=== PATIENT | male | born 1970 | race Caucasian/White ===

== ENCOUNTER 2020-04-09 11:01 | Inpatient (IN) ==
[2020-04-09] MEDS ORDERED: Ondansetron 4 mg VIAL 2 MG/ML 2 ml VIAL IV ONE ×2 (12:05→16:00)
[2020-04-09] MEDS ORDERED: NS 0.9% 1000 ml BAG 1,000 ML IV ONE (12:05)
[2020-04-09 12:38] LABS: ABS Basophils 0.1 10^3/ul (0-0.2); ABS Lymphocytes 0.8 10^3/ul (1.0-4.8); ABS Monocytes 0.8 10^3/ul (0-0.8); ABS Neutrophils 7.9 10^3/ul (1.5-7.7); Eosinophil % 0.1 %; Hematocrit 39 % (42-52); Hemoglobin 13.5 g/dL (14.0-18.0); Mean Corpuscular HGB Conc 35 g/dL (31-36); Mean Corpuscular Hemoglobin 31 pg (27-31); Mean Corpuscular Volume 89 fL (80-94); Mean Platelet Volume 8.5 fL (7.4-10.4); Platelet Count 266 10^3/uL (150-450); Red Blood Count 4.39 10^6 /uL (4.18-5.48); Red Cell Distribution Width 14 % (10-15); White Blood Count 9.5 10^3/uL (3.5-10.8)
[2020-04-09] MEDS ORDERED: Morphine 4 MG/ML VIAL (1 ml) IV ONE ×3 (12:41→19:16)
[2020-04-09] MEDS ORDERED: Famotidine IV 10 MG/ML 2 ml VIAL (20 mg) IV SLOW PU ONE (12:41)
[2020-04-09 12:56] LABS: Albumin 3.8 g/dL (3.2-5.2); BUN/Creatinine Ratio 12.5 (8-20); Calcium 9.1 mg/dL (8.6-10.3); EGFR African American 160.2 (>60); EGFR Non-African American 132.4 (>60); Globulin 3.7 g/dL (2-4); Potassium 3.9 mmol/L (3.5-5.0); Total Bilirubin 0.5 mg/dL (0.2-1.0); Total Protein 7.5 g/dL (6.4-8.9)
[2020-04-09 14:37] LABS: Urine Appearance Clear; Urine Bilirubin Negative (Negative); Urine Blood Negative (Negative); Urine Color Straw; Urine Glucose Negative (Negative); Urine Ketones Negative (Negative); Urine Nitrite Negative (Negative); Urine Protein Negative (Negative); Urine Specific Gravity 1.005 (1.010-1.030); Urine Urobilinogen Negative (Negative)
[2020-04-09] MEDS ORDERED: Iohexol 300 (CONTRAST) 10 ML SDV IV ONE (15:15)
[2020-04-09 21:23] LABS: TSH Ultra Thyroid Stim Horm 0.31 mcIU/mL (0.34-5.60)
[2020-04-09] MEDS: NS 0.9% 1000 ml BAG 1,000 ML IV SCH (22:40)
[2020-04-09] MEDS: Pantoprazole VIAL 40 MG VIAL IV SCH (22:40)
[2020-04-10] MEDS: Ondansetron 4 mg VIAL 2 MG/ML 2 ml VIAL IV PRN ×2 (00:23→05:22)
[2020-04-10 06:52] LABS: ABS Lymphocytes 0.6 10^3/ul (1.0-4.8); ABS Monocytes 1.2 10^3/ul (0-0.8); ABS Neutrophils 8.6 10^3/ul (1.5-7.7); Eosinophil % 0.1 %; Hematocrit 38 % (42-52); Mean Corpuscular HGB Conc 34 g/dL (31-36); Mean Corpuscular Hemoglobin 31 pg (27-31); Mean Corpuscular Volume 90 fL (80-94); Mean Platelet Volume 8.7 fL (7.4-10.4); Platelet Count 239 10^3/uL (150-450); Red Blood Count 4.26 10^6 /uL (4.18-5.48); Red Cell Distribution Width 13 % (10-15); White Blood Count 10.5 10^3/uL (3.5-10.8)
[2020-04-10 07:10] LABS: INR 1.5 (0.82-1.09)
[2020-04-10 07:13] LABS: BUN/Creatinine Ratio 15.3 (8-20); Calcium 8.8 mg/dL (8.6-10.3); EGFR African American 175.9 (>60); EGFR Non-African American 145.4 (>60); Potassium 3.7 mmol/L (3.5-5.0)
[2020-04-10] MEDS: NS 0.9% 1000 ml BAG 1,000 ML IV SCH ×2 (08:08→22:32)
[2020-04-10] MEDS ORDERED: PEG 3000 GI LAVAGE 1 GALLON PO ONE (14:30)
[2020-04-10] MEDS: Pantoprazole VIAL 40 MG VIAL IV SCH (20:24)
[2020-04-11] MEDS: Ondansetron 4 mg VIAL 2 MG/ML 2 ml VIAL IV PRN ×2 (02:03→10:16)
[2020-04-11 06:19] LABS: ABS Lymphocytes 0.6 10^3/ul (1.0-4.8); ABS Monocytes 1.2 10^3/ul (0-0.8); ABS Neutrophils 7.3 10^3/ul (1.5-7.7); Eosinophil % 0.1 %; Hematocrit 35 % (42-52); Hemoglobin 12.1 g/dL (14.0-18.0); Lymphocyte % 6.9 %; Mean Corpuscular HGB Conc 34 g/dL (31-36); Mean Corpuscular Hemoglobin 31 pg (27-31); Mean Corpuscular Volume 90 fL (80-94); Platelet Count 214 10^3/uL (150-450); Red Blood Count 3.94 10^6 /uL (4.18-5.48); Red Cell Distribution Width 13 % (10-15); White Blood Count 9.2 10^3/uL (3.5-10.8)
[2020-04-11 06:36] LABS: Albumin 3.4 g/dL (3.2-5.2); C Reactive Protein 177.28 mg/L (<8.01); Calcium 8.5 mg/dL (8.6-10.3); EGFR African American 199.1 (>60); EGFR Non-African American 164.6 (>60); Globulin 3.4 g/dL (2-4); Potassium 3.5 mmol/L (3.5-5.0); Total Bilirubin 0.7 mg/dL (0.2-1.0); Total Protein 6.8 g/dL (6.4-8.9)
[2020-04-11] MEDS: NS 0.9% 1000 ml BAG 1,000 ML IV SCH (08:57)
[2020-04-11] MEDS ORDERED: Gadoxetate (CONTRAST) 181.43 MG/ML 10 ML SDV IV ONE (12:36)
[2020-04-11] MEDS ORDERED: fentaNYL 100 mcg/2 ml 50 MCG/ML VIAL ONE (14:46)
[2020-04-11] MEDS ORDERED: Midazolam 10 mg/10 ml VIAL 1 mg/ml 10 ml VIAL (10 mg) ONE (14:46)
[2020-04-11] MEDS ORDERED: Phytonadione IV (Adult) 10 MG in NS 0.9% 50 ML 50 ML IV ONE (17:30)
[2020-04-11] MEDS: Pantoprazole VIAL 40 MG VIAL IV SCH (20:04)
[2020-04-12 05:04] LABS: Iron < 20 ug/dL (50-212)
[2020-04-12 05:05] LABS: ALT 33 U/L (7-52); AST 30 U/L (13-39); Albumin 3.3 g/dL (3.2-5.2); Alkaline Phosphatase 155 U/L (34-104); Anion Gap 9 mmol/L (2-11); BUN/Creatinine Ratio 15.4 (8-20); Blood Urea Nitrogen 8 mg/dL (6-24); CO2 Carbon Dioxide 22 mmol/L (22-32); Calcium 8.4 mg/dL (8.6-10.3); Chloride 100 mmol/L (101-111); EGFR African American 203.5 (>60); EGFR Non-African American 168.2 (>60); Globulin 3.4 g/dL (2-4); Glucose 106 mg/dL (70-100); Potassium 3.6 mmol/L (3.5-5.0); Sodium 131 mmol/L (135-145); Total Protein 6.7 g/dL (6.4-8.9)
[2020-04-12] MEDS: NS 0.9% 1000 ml BAG 1,000 ML IV SCH (05:51)
[2020-04-12] MEDS: Ondansetron 4 mg VIAL 2 MG/ML 2 ml VIAL IV PRN ×3 (12:23→22:18)
[2020-04-12 12:36] LABS: INR 1.48 (0.82-1.09)
[2020-04-12] MEDS ORDERED: Piperacillin/Tazobac ADVAN 3.375 GM in NS 0.9% 100 ml BAG 100 ML IV ONE (16:59)
[2020-04-12] MEDS ORDERED: Zosyn per Pharmacy NOTE FOLLOW UP SCH (17:00)
[2020-04-12] MEDS: Pantoprazole VIAL 40 MG VIAL IV SCH (22:05)
[2020-04-12] MEDS: ZOSYN 3.375 GM Q8H per EXTENDED INFUSION IV SCH (22:05)
[2020-04-13] MEDS: Ondansetron 4 mg VIAL 2 MG/ML 2 ml VIAL IV PRN ×4 (02:09→14:06)
[2020-04-13] MEDS: ZOSYN 3.375 GM Q8H per EXTENDED INFUSION IV SCH ×3 (06:06→22:20)
[2020-04-13 07:01] LABS: Hematocrit 32 % (42-52); Hemoglobin 11.1 g/dL (14.0-18.0); Mean Corpuscular HGB Conc 34 g/dL (31-36); Mean Corpuscular Hemoglobin 31 pg (27-31); Mean Corpuscular Volume 90 fL (80-94); Mean Platelet Volume 9.5 fL (7.4-10.4); Platelet Count 194 10^3/uL (150-450); Red Cell Distribution Width 14 % (10-15); White Blood Count 9.8 10^3/uL (3.5-10.8)
[2020-04-13 07:20] LABS: Albumin 3.2 g/dL (3.2-5.2); BUN/Creatinine Ratio 13.7 (8-20); Calcium 8.4 mg/dL (8.6-10.3); EGFR African American 208.2 (>60); Globulin 3.3 g/dL (2-4); Potassium 3.6 mmol/L (3.5-5.0); Total Protein 6.5 g/dL (6.4-8.9)
[2020-04-13 07:25] LABS: INR 1.5 (0.82-1.09)
[2020-04-13] MEDS: Nicotine PATCH 21 MG/24 HR PATCH TRANSDERM SCH (08:43)
[2020-04-13] MEDS ORDERED: fentaNYL 100 mcg/2 ml 50 MCG/ML VIAL ONE ×2 (10:34→16:49)
[2020-04-13] MEDS: Pantoprazole VIAL 40 MG VIAL IV SCH (22:20)
[2020-04-14] MEDS ORDERED: NS 0.9% 1000 ml BAG 1,000 ML IV ONE ×2 (03:22→07:19)
[2020-04-14] MEDS: ZOSYN 3.375 GM Q8H per EXTENDED INFUSION IV SCH (05:56)
[2020-04-14 06:28] LABS: Hematocrit 31 % (42-52); Hemoglobin 10.5 g/dL (14.0-18.0); Mean Corpuscular HGB Conc 34 g/dL (31-36); Mean Corpuscular Hemoglobin 30 pg (27-31); Mean Corpuscular Volume 90 fL (80-94); Mean Platelet Volume 9.4 fL (7.4-10.4); Platelet Count 121 10^3/uL (150-450); Red Blood Count 3.48 10^6 /uL (4.18-5.48); Red Cell Distribution Width 14 % (10-15); White Blood Count 24.9 10^3/uL (3.5-10.8)
[2020-04-14 06:52] LABS: Potassium 3.5 mmol/L (3.5-5.0)
[2020-04-14 06:53] LABS: Albumin 2.9 g/dL (3.2-5.2); Albumin/Globulin Ratio 0.9 (1-3); BUN/Creatinine Ratio 15.7 (8-20); C Reactive Protein 228.43 mg/L (<8.01); Calcium 7.6 mg/dL (8.6-10.3); EGFR African American 72.6 (>60); Globulin 3.1 g/dL (2-4); Total Bilirubin 2.3 mg/dL (0.2-1.0)
[2020-04-14 07:01] LABS: ABS Lymphocytes 0.2 10^3/ul (1.0-4.8); ABS Monocytes 0.5 10^3/ul (0-0.8)
[2020-04-14] MEDS ORDERED: NS 0.9% 1000 ml BAG 1,000 ML IV SCH (07:30)
[2020-04-14] MEDS: Nicotine PATCH 21 MG/24 HR PATCH TRANSDERM SCH (07:32)
[2020-04-14] MEDS ORDERED: Vancomycin per Pharmacy 1 EA NOTE FOLLOW UP SCH (08:00)
[2020-04-14] MEDS ORDERED: Cefepime 1 GM in Dextrose 1 GM/50 ML BAG IV SCH (08:00)
[2020-04-14] MEDS ORDERED: Vancomycin 1,500 MG in NS 0.9% 250 ml 250 ML IVPB ONE (08:30)
[2020-04-14] MEDS ORDERED: metroNIDAZOLE IV 500 MG/100ML 500 MG/100 ML BAG IVPB SCH (09:00)
[2020-04-14] MEDS ORDERED: Zosyn per Pharmacy NOTE FOLLOW UP SCH (12:00)
[2020-04-14] MEDS: Piperacillin/Tazobac ADVAN 3.375 GM in NS 0.9% 100 ml BAG 100 ML IV SCH ×2 (13:52→22:35)
[2020-04-14 15:43] LABS: BUN/Creatinine Ratio 22.1 (8-20); Calcium 7.8 mg/dL (8.6-10.3); EGFR African American 129.4 (>60); EGFR Non-African American 106.9 (>60); Potassium 3.6 mmol/L (3.5-5.0)
[2020-04-14] MEDS: Pantoprazole VIAL 40 MG VIAL IV SCH (22:35)
[2020-04-15] MEDS: Piperacillin/Tazobac ADVAN 3.375 GM in NS 0.9% 100 ml BAG 100 ML IV SCH ×3 (05:55→21:21)
[2020-04-15 06:32] LABS: ABS Basophils 0.1 10^3/ul (0-0.2); ABS Eosinophils 0.1 10^3/ul (0-0.6); ABS Lymphocytes 0.5 10^3/ul (1.0-4.8); ABS Monocytes 0.4 10^3/ul (0-0.8); ABS Neutrophils 16.1 10^3/ul (1.5-7.7); Eosinophil % 0.8 %; Hematocrit 31 % (42-52); Hemoglobin 10.4 g/dL (14.0-18.0); Lymphocyte % 2.9 %; Mean Corpuscular HGB Conc 34 g/dL (31-36); Mean Corpuscular Hemoglobin 30 pg (27-31); Mean Corpuscular Volume 89 fL (80-94); Mean Platelet Volume 10.4 fL (7.4-10.4); Platelet Count 131 10^3/uL (150-450); Red Blood Count 3.45 10^6 /uL (4.18-5.48); Red Cell Distribution Width 14 % (10-15); White Blood Count 17.2 10^3/uL (3.5-10.8)
[2020-04-15 06:47] LABS: Albumin 2.8 g/dL (3.2-5.2); Albumin/Globulin Ratio 0.9 (1-3); BUN/Creatinine Ratio 16.9 (8-20); Calcium 7.8 mg/dL (8.6-10.3); EGFR African American 175.9 (>60); EGFR Non-African American 145.4 (>60); Globulin 3.1 g/dL (2-4); Potassium 3.3 mmol/L (3.5-5.0); Total Protein 5.9 g/dL (6.4-8.9)
[2020-04-15] MEDS ORDERED: Potassium Chlor 20 meq TAB.ER PO ONE (08:03)
[2020-04-15] MEDS: Nicotine PATCH 21 MG/24 HR PATCH TRANSDERM SCH (08:03)
[2020-04-15] MEDS: NS 0.9% 1000 ml BAG 1,000 ML IV SCH ×3 (13:43→23:30)
[2020-04-15] MEDS: Pantoprazole VIAL 40 MG VIAL IV SCH (21:21)
[2020-04-16 04:35] LABS: ABS Eosinophils 0.3 10^3/ul (0-0.6); ABS Lymphocytes 0.7 10^3/ul (1.0-4.8); ABS Monocytes 0.4 10^3/ul (0-0.8); ABS Neutrophils 8.3 10^3/ul (1.5-7.7); Hematocrit 28 % (42-52); Hemoglobin 9.7 g/dL (14.0-18.0); Lymphocyte % 7.3 %; Mean Corpuscular HGB Conc 34 g/dL (31-36); Mean Corpuscular Hemoglobin 31 pg (27-31); Mean Corpuscular Volume 89 fL (80-94); Mean Platelet Volume 10.2 fL (7.4-10.4); Platelet Count 144 10^3/uL (150-450); Red Blood Count 3.17 10^6 /uL (4.18-5.48); Red Cell Distribution Width 14 % (10-15); White Blood Count 9.7 10^3/uL (3.5-10.8)
[2020-04-16 04:48] LABS: Albumin 2.6 g/dL (3.2-5.2); Albumin/Globulin Ratio 0.9 (1-3); BUN/Creatinine Ratio 17.6 (8-20); Calcium 7.9 mg/dL (8.6-10.3); EGFR African American 208.2 (>60); Globulin 2.9 g/dL (2-4); Potassium 3.5 mmol/L (3.5-5.0); Total Bilirubin 2.7 mg/dL (0.2-1.0); Total Protein 5.5 g/dL (6.4-8.9)
[2020-04-16] MEDS: Piperacillin/Tazobac ADVAN 3.375 GM in NS 0.9% 100 ml BAG 100 ML IV SCH ×3 (06:34→18:51)
[2020-04-16] MEDS: Nicotine PATCH 21 MG/24 HR PATCH TRANSDERM SCH (08:35)
[2020-04-16] MEDS ORDERED: Caspofungin(NF) 70 MG in NS 0.9% 250 ml 250 ML IV ONE (12:01)
[2020-04-16] MEDS ORDERED: Magnesium Hydroxide LIQ 30 ML UDC PO PRN (12:07)
[2020-04-16] MEDS ORDERED: Magnesium Hydroxide LIQ 30 ML UDC PO ONE (12:07)
[2020-04-16] MEDS: NS 0.9% 1000 ml BAG 1,000 ML IV SCH (12:59)
[2020-04-16] MEDS ORDERED: Anidulafungin 200 MG in NS 0.9% 200 ML IVPB ONE (13:30)
[2020-04-16] MEDS: Pantoprazole VIAL 40 MG VIAL IV SCH (20:46)
[2020-04-17] MEDS: Piperacillin/Tazobac ADVAN 3.375 GM in NS 0.9% 100 ml BAG 100 ML IV SCH ×4 (00:45→18:09)
[2020-04-17] MEDS: NS 0.9% 1000 ml BAG 1,000 ML IV SCH ×2 (04:43→23:20)
[2020-04-17 06:39] LABS: Hematocrit 30 % (42-52); Hemoglobin 10.2 g/dL (14.0-18.0); Mean Corpuscular HGB Conc 34 g/dL (31-36); Mean Corpuscular Hemoglobin 30 pg (27-31); Mean Corpuscular Volume 88 fL (80-94); Mean Platelet Volume 10.9 fL (7.4-10.4); Platelet Count 171 10^3/uL (150-450); Red Blood Count 3.39 10^6 /uL (4.18-5.48); Red Cell Distribution Width 14 % (10-15); White Blood Count 9.3 10^3/uL (3.5-10.8)
[2020-04-17 06:55] LABS: Albumin 2.7 g/dL (3.2-5.2); Albumin/Globulin Ratio 0.9 (1-3); Calcium 8.1 mg/dL (8.6-10.3); Globulin 3.1 g/dL (2-4); Magnesium 1.7 mg/dL (1.9-2.7); Potassium 3.5 mmol/L (3.5-5.0); Total Bilirubin 4.3 mg/dL (0.2-1.0); Total Protein 5.8 g/dL (6.4-8.9)
[2020-04-17 07:02] LABS: ABS Basophils 0.1 10^3/ul (0-0.2); ABS Eosinophils 0.3 10^3/ul (0-0.6); ABS Lymphocytes 0.7 10^3/ul (1.0-4.8); ABS Monocytes 0.5 10^3/ul (0-0.8); ABS Neutrophils 7.7 10^3/ul (1.5-7.7); Eosinophil % 2.9 %; Lymphocyte % 7.6 %
[2020-04-17] MEDS: Nicotine PATCH 21 MG/24 HR PATCH TRANSDERM SCH (07:52)
[2020-04-17 11:19] LABS: INR 1.43 (0.82-1.09)
[2020-04-17 11:26] LABS: Albumin 2.7 g/dL (3.2-5.2); Albumin/Globulin Ratio 0.9 (1-3); BUN/Creatinine Ratio 19.6 (8-20); Calcium 7.9 mg/dL (8.6-10.3); EGFR African American 208.2 (>60); Potassium 3.5 mmol/L (3.5-5.0); Total Bilirubin 4.2 mg/dL (0.2-1.0); Total Protein 5.7 g/dL (6.4-8.9)
[2020-04-17] MEDS ORDERED: NS 0.9% IV SCH (12:02)
[2020-04-17] MEDS ORDERED: CASPOFUNGIN IV SCH (12:02)
[2020-04-17] MEDS ORDERED: Potassium Chlor 20 meq TAB.ER PO ONE (12:38)
[2020-04-17] MEDS: Anidulafungin 100 MG in NS 0.9% 100 ML IVPB SCH (14:06)
[2020-04-17] MEDS: Ondansetron 4 mg VIAL 2 MG/ML 2 ml VIAL IV PRN (19:48)
[2020-04-17] MEDS ORDERED: Iohexol 300 (CONTRAST) 10 ML SDV IV ONE (19:52)
[2020-04-17 20:41] LABS: Hematocrit 33 % (42-52); Hemoglobin 11.1 g/dL (14.0-18.0); Mean Corpuscular HGB Conc 34 g/dL (31-36); Mean Corpuscular Hemoglobin 30 pg (27-31); Mean Corpuscular Volume 90 fL (80-94); Mean Platelet Volume 10.4 fL (7.4-10.4); Platelet Count 177 10^3/uL (150-450); Red Blood Count 3.65 10^6 /uL (4.18-5.48); Red Cell Distribution Width 14 % (10-15); White Blood Count 8.9 10^3/uL (3.5-10.8)
[2020-04-17 20:52] LABS: Albumin/Globulin Ratio 0.9 (1-3); BUN/Creatinine Ratio 14.3 (8-20); Calcium 8.2 mg/dL (8.6-10.3); EGFR Non-African American 180.2 (>60); Globulin 3.2 g/dL (2-4); Total Bilirubin 4.8 mg/dL (0.2-1.0); Total Protein 6.2 g/dL (6.4-8.9)
[2020-04-17 20:56] LABS: Potassium 4.1 mmol/L (3.5-5.0)
[2020-04-17] MEDS: Pantoprazole VIAL 40 MG VIAL IV SCH (21:03)
[2020-04-17] MEDS: Polyethylene Glycol 3350 17 GM PACKET PO SCH (21:10)
[2020-04-17 22:03] LABS: ABS Eosinophils 0.3 10^3/ul (0-0.6); ABS Lymphocytes 0.9 10^3/ul (1.0-4.8); ABS Monocytes 0.8 10^3/ul (0-0.8); ABS Neutrophils 6.9 10^3/ul (1.5-7.7); Eosinophil % 2.8 %; Lymphocyte % 10.1 %
[2020-04-18] MEDS ORDERED: Midazolam 2 mg/2 ml VIAL 1 mg/ml 2 ml VIAL (2 mg) IV SLOW PU SCH
[2020-04-18] MEDS ORDERED: fentaNYL 100 mcg/2 ml 50 MCG/ML VIAL IV SCH ×2
[2020-04-18] MEDS: Piperacillin/Tazobac ADVAN 3.375 GM in NS 0.9% 100 ml BAG 100 ML IV SCH ×4 (00:27→18:07)
[2020-04-18] MEDS: Ondansetron 4 mg VIAL 2 MG/ML 2 ml VIAL IV PRN ×3 (02:58→20:40)
[2020-04-18 05:41] LABS: Hematocrit 31 % (42-52); Hemoglobin 10.7 g/dL (14.0-18.0); Mean Corpuscular HGB Conc 35 g/dL (31-36); Mean Corpuscular Hemoglobin 30 pg (27-31); Mean Corpuscular Volume 88 fL (80-94); Mean Platelet Volume 10.7 fL (7.4-10.4); Platelet Count 188 10^3/uL (150-450); Red Blood Count 3.52 10^6 /uL (4.18-5.48); Red Cell Distribution Width 15 % (10-15); White Blood Count 7.8 10^3/uL (3.5-10.8)
[2020-04-18 05:59] LABS: Albumin 2.8 g/dL (3.2-5.2); Albumin/Globulin Ratio 0.9 (1-3); Globulin 3.1 g/dL (2-4); Magnesium 1.6 mg/dL (1.9-2.7); Potassium 3.5 mmol/L (3.5-5.0); Total Bilirubin 4.5 mg/dL (0.2-1.0); Total Protein 5.9 g/dL (6.4-8.9)
[2020-04-18] MEDS ORDERED: Al Hydrox/Mg Hydrox/Simet LIQ 30 ML UDC PO PRN (06:11)
[2020-04-18 07:25] LABS: ABS Eosinophils 0.1 10^3/ul (0-0.6); ABS Lymphocytes 0.5 10^3/ul (1.0-4.8); ABS Monocytes 0.7 10^3/ul (0-0.8); ABS Neutrophils 6.5 10^3/ul (1.5-7.7); Eosinophil % 1.8 %
[2020-04-18] MEDS ORDERED: Magnesium Sulf 4 GM/100 ML IV 4,000 MG/100 ML BAG IVPB ONE (08:19)
[2020-04-18] MEDS ORDERED: Potassium Chlor 20 meq TAB.ER PO ONE (08:20)
[2020-04-18] MEDS: Nicotine PATCH 21 MG/24 HR PATCH TRANSDERM SCH (09:58)
[2020-04-18] MEDS: Polyethylene Glycol 3350 17 GM PACKET PO SCH ×2 (09:59→20:39)
[2020-04-18] MEDS: Anidulafungin 100 MG in NS 0.9% 100 ML IVPB SCH (14:41)
[2020-04-18] MEDS: Pantoprazole VIAL 40 MG VIAL IV SCH (20:40)
[2020-04-18] MEDS: NS 0.9% 1000 ml BAG 1,000 ML IV SCH (21:22)
[2020-04-19] MEDS: Piperacillin/Tazobac ADVAN 3.375 GM in NS 0.9% 100 ml BAG 100 ML IV SCH ×4 (00:18→19:19)
[2020-04-19] MEDS: Ondansetron 4 mg VIAL 2 MG/ML 2 ml VIAL IV PRN ×3 (06:28→16:41)
[2020-04-19 07:01] LABS: Hematocrit 31 % (42-52); Hemoglobin 10.8 g/dL (14.0-18.0); Mean Corpuscular HGB Conc 34 g/dL (31-36); Mean Corpuscular Hemoglobin 30 pg (27-31); Mean Corpuscular Volume 88 fL (80-94); Mean Platelet Volume 10.4 fL (7.4-10.4); Platelet Count 223 10^3/uL (150-450); Red Blood Count 3.55 10^6 /uL (4.18-5.48); Red Cell Distribution Width 14 % (10-15)
[2020-04-19 07:07] LABS: INR 1.31 (0.82-1.09)
[2020-04-19 07:23] LABS: Albumin 2.8 g/dL (3.2-5.2); Magnesium 1.9 mg/dL (1.9-2.7); Potassium 3.8 mmol/L (3.5-5.0)
[2020-04-19 07:29] LABS: Albumin/Globulin Ratio 0.9 (1-3); BUN/Creatinine Ratio 23.4 (8-20); C Reactive Protein 79.05 mg/L (<8.01); EGFR African American 228.7 (>60); Total Protein 5.8 g/dL (6.4-8.9)
[2020-04-19 07:43] LABS: ABS Lymphocytes 0.7 10^3/ul (1.0-4.8); ABS Monocytes 0.6 10^3/ul (0-0.8); ABS Neutrophils 5.6 10^3/ul (1.5-7.7); Eosinophil % 0.5 %; Lymphocyte % 10.1 %
[2020-04-19] MEDS: Polyethylene Glycol 3350 17 GM PACKET PO SCH ×2 (08:08→22:15)
[2020-04-19] MEDS: Nicotine PATCH 21 MG/24 HR PATCH TRANSDERM SCH (08:09)
[2020-04-19] MEDS ORDERED: Potassium Chlor 20 meq TAB.ER PO ONE (09:54)
[2020-04-19] MEDS ORDERED: Magnesium Sulfate IV 1GM/100ML 1 GM/100 ML BAG IV ONE (09:54)
[2020-04-19] MEDS: NS 0.9% 1000 ml BAG 1,000 ML IV SCH (10:13)
[2020-04-19] MEDS: Anidulafungin 100 MG in NS 0.9% 100 ML IVPB SCH (12:44)
[2020-04-19] MEDS: Pantoprazole VIAL 40 MG VIAL IV SCH (22:13)
[2020-04-20] MEDS: NS 0.9% 1000 ml BAG 1,000 ML IV SCH ×2 (00:54→18:19)
[2020-04-20] MEDS: Piperacillin/Tazobac ADVAN 3.375 GM in NS 0.9% 100 ml BAG 100 ML IV SCH ×4 (00:54→19:16)
[2020-04-20 05:50] LABS: Hematocrit 33 % (42-52); Hemoglobin 11.4 g/dL (14.0-18.0); Mean Corpuscular HGB Conc 34 g/dL (31-36); Mean Corpuscular Hemoglobin 30 pg (27-31); Mean Corpuscular Volume 89 fL (80-94); Mean Platelet Volume 9.9 fL (7.4-10.4); Platelet Count 292 10^3/uL (150-450); Red Blood Count 3.77 10^6 /uL (4.18-5.48); Red Cell Distribution Width 14 % (10-15); White Blood Count 7.3 10^3/uL (3.5-10.8)
[2020-04-20 06:01] LABS: INR 1.21 (0.82-1.09)
[2020-04-20 06:07] LABS: Albumin 2.9 g/dL (3.2-5.2); Albumin/Globulin Ratio 0.9 (1-3); BUN/Creatinine Ratio 12.3 (8-20); Calcium 8.2 mg/dL (8.6-10.3); EGFR African American 183.1 (>60); EGFR Non-African American 151.3 (>60); Globulin 3.1 g/dL (2-4); Potassium 3.8 mmol/L (3.5-5.0)
[2020-04-20 06:22] LABS: ABS Eosinophils 0.2 10^3/ul (0-0.6); ABS Lymphocytes 1.1 10^3/ul (1.0-4.8); ABS Monocytes 0.9 10^3/ul (0-0.8); ABS Neutrophils 5.2 10^3/ul (1.5-7.7); Eosinophil % 2.1 %; Lymphocyte % 14.5 %
[2020-04-20] MEDS: Nicotine PATCH 21 MG/24 HR PATCH TRANSDERM SCH (10:39)
[2020-04-20] MEDS: Polyethylene Glycol 3350 17 GM PACKET PO SCH ×2 (10:39→21:26)
[2020-04-20] MEDS ORDERED: Potassium Chlor 20 meq TAB.ER PO ONE (11:27)
[2020-04-20] MEDS: Anidulafungin 100 MG in NS 0.9% 100 ML IVPB SCH (15:47)
[2020-04-20] MEDS: Pantoprazole VIAL 40 MG VIAL IV SCH (21:26)
[2020-04-21] MEDS: Piperacillin/Tazobac ADVAN 3.375 GM in NS 0.9% 100 ml BAG 100 ML IV SCH ×5 (00:08→23:10)
[2020-04-21 06:13] LABS: Hematocrit 31 % (42-52); Hemoglobin 10.5 g/dL (14.0-18.0); Mean Corpuscular HGB Conc 34 g/dL (31-36); Mean Corpuscular Hemoglobin 30 pg (27-31); Mean Corpuscular Volume 89 fL (80-94); Mean Platelet Volume 9.7 fL (7.4-10.4); Platelet Count 328 10^3/uL (150-450); Red Blood Count 3.48 10^6 /uL (4.18-5.48); Red Cell Distribution Width 15 % (10-15); White Blood Count 7.1 10^3/uL (3.5-10.8)
[2020-04-21 06:21] LABS: INR 1.2 (0.82-1.09)
[2020-04-21 06:32] LABS: Albumin 2.8 g/dL (3.2-5.2); BUN/Creatinine Ratio 16.3 (8-20); C Reactive Protein 31.91 mg/L (<8.01); Calcium 8.3 mg/dL (8.6-10.3); EGFR Non-African American 180.2 (>60); Globulin 2.9 g/dL (2-4); Magnesium 1.9 mg/dL (1.9-2.7); Potassium 3.7 mmol/L (3.5-5.0); Total Bilirubin 1.6 mg/dL (0.2-1.0); Total Protein 5.7 g/dL (6.4-8.9)
[2020-04-21 06:52] LABS: ABS Basophils 0.1 10^3/ul (0-0.2); ABS Eosinophils 0.2 10^3/ul (0-0.6); ABS Lymphocytes 1.1 10^3/ul (1.0-4.8); ABS Monocytes 0.6 10^3/ul (0-0.8); ABS Neutrophils 5.2 10^3/ul (1.5-7.7); Eosinophil % 3.2 %; Lymphocyte % 14.8 %
[2020-04-21] MEDS: Polyethylene Glycol 3350 17 GM PACKET PO SCH ×2 (07:11→19:53)
[2020-04-21] MEDS: Nicotine PATCH 21 MG/24 HR PATCH TRANSDERM SCH (07:46)
[2020-04-21] MEDS ORDERED: Iohexol 300 (CONTRAST) 10 ML SDV IV ONE (10:19)
[2020-04-21] MEDS: Anidulafungin 100 MG in NS 0.9% 100 ML IVPB SCH (14:00)
[2020-04-21] MEDS: Pantoprazole VIAL 40 MG VIAL IV SCH (19:42)
[2020-04-22] MEDS: NS 0.9% 1000 ml BAG 1,000 ML IV SCH (03:10)
[2020-04-22 06:12] LABS: Hematocrit 35 % (42-52); Hemoglobin 11.7 g/dL (14.0-18.0); Mean Corpuscular HGB Conc 33 g/dL (31-36); Mean Corpuscular Hemoglobin 30 pg (27-31); Mean Corpuscular Volume 89 fL (80-94); Mean Platelet Volume 9.9 fL (7.4-10.4); Platelet Count 442 10^3/uL (150-450); Red Blood Count 3.93 10^6 /uL (4.18-5.48); Red Cell Distribution Width 15 % (10-15); White Blood Count 6.3 10^3/uL (3.5-10.8)
[2020-04-22] MEDS: Piperacillin/Tazobac ADVAN 3.375 GM in NS 0.9% 100 ml BAG 100 ML IV SCH ×3 (06:21→18:05)
[2020-04-22 06:33] LABS: Albumin 3.2 g/dL (3.2-5.2); Albumin/Globulin Ratio 0.9 (1-3); BUN/Creatinine Ratio 15.9 (8-20); Calcium 8.9 mg/dL (8.6-10.3); EGFR African American 246.8 (>60); Globulin 3.6 g/dL (2-4); Potassium 3.9 mmol/L (3.5-5.0); Total Bilirubin 1.7 mg/dL (0.2-1.0); Total Protein 6.8 g/dL (6.4-8.9)
[2020-04-22] MEDS: Polyethylene Glycol 3350 17 GM PACKET PO SCH (07:31)
[2020-04-22] MEDS: Nicotine PATCH 21 MG/24 HR PATCH TRANSDERM SCH (07:42)
[2020-04-22] MEDS: Ondansetron 4 mg VIAL 2 MG/ML 2 ml VIAL IV PRN ×4 (07:43→21:16)
[2020-04-22 08:22] LABS: ABS Eosinophils 0.3 10^3/ul (0-0.6); ABS Monocytes 0.3 10^3/ul (0-0.8); ABS Neutrophils 4.6 10^3/ul (1.5-7.7); Lymphocyte % 16.5 %; Nucleated Red Blood Cells % 0.1
[2020-04-22] MEDS: Anidulafungin 100 MG in NS 0.9% 100 ML IVPB SCH (13:01)
[2020-04-22] MEDS ORDERED: Polyethylene Glycol 3350 17 GM PACKET PO PRN (16:39)
[2020-04-23] MEDS: Piperacillin/Tazobac ADVAN 3.375 GM in NS 0.9% 100 ml BAG 100 ML IV SCH ×4 (00:58→18:17)
[2020-04-23] MEDS: Ondansetron 4 mg VIAL 2 MG/ML 2 ml VIAL IV PRN (05:18)
[2020-04-23] MEDS: Nicotine PATCH 21 MG/24 HR PATCH TRANSDERM SCH (07:57)
[2020-04-23] MEDS: Anidulafungin 100 MG in NS 0.9% 100 ML IVPB SCH (14:01)
[2020-04-23] MEDS ORDERED: oxyCODONE/Acetamin 10/325(NF) TAB PO PRN (15:21)
[2020-04-23] MEDS: oxyCODONE/Acetamin 5/325 mg TAB PO PRN ×2 (16:23→20:47)
[2020-04-24] MEDS: oxyCODONE/Acetamin 5/325 mg TAB PO PRN ×4 (00:28→23:19)
[2020-04-24] MEDS: Piperacillin/Tazobac ADVAN 3.375 GM in NS 0.9% 100 ml BAG 100 ML IV SCH ×5 (00:29→23:20)
[2020-04-24 09:07] LABS: Albumin 3.2 g/dL (3.2-5.2); BUN/Creatinine Ratio 22.2 (8-20); C Reactive Protein 10.27 mg/L (<8.01); Calcium 8.8 mg/dL (8.6-10.3); EGFR African American 194.9 (>60); EGFR Non-African American 161.1 (>60); Globulin 3.3 g/dL (2-4); Potassium 3.8 mmol/L (3.5-5.0); Total Bilirubin 1.3 mg/dL (0.2-1.0); Total Protein 6.5 g/dL (6.4-8.9)
[2020-04-24] MEDS: Nicotine PATCH 21 MG/24 HR PATCH TRANSDERM SCH (10:23)
[2020-04-24] MEDS: Anidulafungin 100 MG in NS 0.9% 100 ML IVPB SCH (13:45)
[2020-04-24] MEDS: Ondansetron 4 mg VIAL 2 MG/ML 2 ml VIAL IV PRN (20:39)
[2020-04-25] MEDS: oxyCODONE/Acetamin 5/325 mg TAB PO PRN (05:57)
[2020-04-25 06:38] LABS: INR 1.15 (0.82-1.09)
[2020-04-25] MEDS ORDERED: fentaNYL 250 mcg/5 ml 50 MCG/ML 5 ml VIAL (250 MCG) ONE (07:47)
[2020-04-25] MEDS ORDERED: cefTRIAXone 2 GM ADDV.VIAL 2 GM in NS 0.9% 100 ml BAG 100 ML IV SCH (09:00)
[2020-04-25] MEDS: Nicotine PATCH 21 MG/24 HR PATCH TRANSDERM SCH (10:36)
[2020-04-25] MEDS: Anidulafungin 100 MG in NS 0.9% 100 ML IVPB SCH (13:50)
[2020-04-25 15:24] VITALS: BP 106/67
== END 2020-04-25 18:40 | disposition home or self-care (01) | DRG 871 ==
LOC: ED 11:01 → MED 11:01
PROVIDERS: ADMIT Internal Medicine Interventional Cardiology; ATTEND Internal Medicine